=== PATIENT | male | born 1965 | race Two or more races ===

== ENCOUNTER 2016-08-05 22:02 | Emergency (ER) | payer OTHER ==
[~2016-08-05] VITALS: Ht 190.5 cm; Wt 90.7 kg
[2016-08-05 22:25] VITALS: BP 139/71
[2016-08-06] MEDS: IVERMECTIN 3 MG TABLET PO ONE (00:15)
== END 2016-08-06 00:41 | disposition home or self-care (01) ==
LOC: ER 22:03
DX: B86 Scabies (principal); E78.5 Hyperlipidemia, unspecified; Z59.0 Homelessness; W57.XXXA Bitten or stung by nonvenomous insect and other nonvenomous arthropods, initial encounter; Y93.89 Activity, other specified; Y92.89 Other specified places as the place of occurrence of the external cause; Y99.8 Other external cause status
CPT/HCPCS: 99283; A4606; Z7610

== ENCOUNTER 2017-09-22 01:50 | Emergency (ER) | payer OTHER ==
[~2017-09-22] VITALS: Ht 188 cm; Wt 90.7 kg
--- NOTE | 2017-09-22 02:10 | NUR ---
CALLED PT FOR TRIAGE, NO RESPONSE, PT PHYSICALLY NOT IN WAITING ROOM
[2017-09-22 03:03] VITALS: BP 133/77
== END 2017-09-22 03:41 | disposition home or self-care (01) ==
LOC: ER 01:53
DX: Z48.01 Encounter for change or removal of surgical wound dressing (principal); E11.9 Type 2 diabetes mellitus without complications; M62.81 Muscle weakness (generalized); E78.5 Hyperlipidemia, unspecified; Z59.0 Homelessness
CPT/HCPCS: 99282; A4606; A6402; Z7610; Z7502